=== PATIENT | female | born 1945 | race African-American/Black ===

== ENCOUNTER 2017-08-24 10:13 | Emergency (ER) | payer MEDICARE ==
[2017-08-24 10:31] VITALS: BP 145/81; PULSE 74; TEMP 98.1; BMI 25.4
--- NOTE | 2017-08-24 11:37 | PDOC ---
History of Present Illness - General Chief Complaint: Injury Stated Complaint: INJURY Time Seen by Provider: 08/24/17 10:23 History Source: Patient Exam Limitations: No Limitations - History of Present Illness Initial Comments: 08/24/17 11:32 CHIEF COMPLAINT: Mechanical fall on August 06 left shoulder pain HISTORY OF PRESENT ILLNESS: Patient is a 72-year-old female with history of hypertension, chronic pain, high cholesterol presents emergency Department status post fall on 08/06/2017 patient reports hitting her left shoulder. Patient states that she thought the pain would go away however still with pain with range of motion to left shoulder. Patient also complains of intermittent pain just when touching left hip. Patient denies any difficulty walking, denies any scrapes bruises abrasions erythema or edema. Pain to left hip is only superficial when palpating area over left hip. No pain with range of motion. Patient denies hitting her head states that she is on Coumadin, no bruising after incident patient is unsure why she is taking Coumadin denies any history of blood clots or cardiac surgery. MEDS: See medication list ALLERGIES: None PCP: Dr. Field REVIEW OF SYSTEMS: GENERAL/CONSTITUTIONAL: Awake alert and oriented HEAD, EYES, EARS, NOSE AND THROAT: No change in vision. No facial edema, no bruising. NO active bleeding. Nares intact. RESPIRATORY: No cough, wheezing, or hemoptysis. CARDIAC: Denies chest pain, no shortness of breathe. MUSCULOSKELETAL: No spinal point tenderness, Good ROM to all four extremities. NO CVA tenderness. NO lateral neck pain. GI/: Denies abdominal pain, no nausea or vomiting, no bloody stool, no Hematuria. SKIN : No erythema or bruising noted. No abrasion or lacerations. NEUROLOGIC: No loss of consciousness, no numbness or tingling. PHYSICAL EXAM: GENERAL: Awake and alert and oriented x3. EYES: The pupils are equal, round, and reactive to light, with clear, conjunctiva. Good extraocular movement. No nystagmus NOSE: No nasal trauma . Midface stable MOUTH: Teeth intact. EARS: The ear canals and tympanic membranes are normal without trauma. No drainage. NECK: No Lower cervical C-spine tenderness, no pain with chin to chest. CHEST: The lungs are clear without crackles, or wheezes. No subcutaneous emphysema. No crepitus. HEART: Heart is regular rhythm, with normal S1 and S2, no murmurs. ABDOMEN: The abdomen is soft and nontender with normal bowel sounds. There is no guarding or rebound. MUSCULOSKELETAL: No spinal point tenderness. No bruising or erythema. Pelvis stable. EXTREMITIES: Extremities are normal. No visible traumatic injury. Pain with ROM to the left shoulder however good ROM, no deformities. NEUROLOGICAL:Mental status: The patient is oriented x3. No Generalized headache , Romberg - Cranial nerves: Cranial nerves II through XII are intact Motor: The upper extremities are 5 over 5 in all muscle groups. The lower extremities are 5 over 5 in all muscle groups. Sensation: Sensation is intact to light touch throughout. Cerebellar: Iutjcc-[id number]-[id number] is normal in both upper extremities. Heel-knee- berrios is normal in both lower extremities. Reflexes: 2+ and symmetric in the upper and lower extremities. Gait: Normal. Heel and toe walking are normal. Tandem gait is normal. SKIN: Without edema, erythema or bruising. No abrasions or lacerations. Past History - Past Medical History Allergies/Adverse Reactions: Allergies Allergy/AdvReac Type Severity Reaction Status Date / Time No Known Drug Allergies Allergy Verified 08/24/17 10:17 Home Medications: Ambulatory Orders Atorvastatin Calcium [Lipitor] 10 mg PO HS #0 tablet 02/26/13 Losartan Potassium [Cozaar] 100 mg PO DAILY 01/20/15 Potassium Chloride [K-Dur -] 20 meq PO DAILY #30 tablet.er 02/07/15 Gabapentin 400 mg PO HS 08/13/15 Warfarin Na [Coumadin] 4 mg PO DAILY 08/13/15 Amlodipine Besylate 5 mg PO DAILY 08/24/17 Lipase/Protease/Amylase [Zenpep Dr 25,000 Units Capsule] 08/24/17 Anemia: No Asthma: No Cancer: No Cardiac Disorders: No CVA: No COPD: No CHF: No Dementia: No Diabetes: Yes (borderline) GI Disorders: No Disorders: No HTN: Yes (Losartan potassium, Vitamin D-3) Hypercholesterolemia: Yes Liver Disease: No Seizures: No Thyroid Disease: No - Surgical History Abdominal Surgery: Yes (cholecystectomy 12/2014) Appendectomy: No Cardiac Surgery: No Cholecystectomy: No Lung Surgery: No Neurologic Surgery: No Orthopedic Surgery: No - Suicide/Smoking/Psychosocial Hx Smoking Status: No Smoking History: Never smoked Have you smoked in the past 12 months: No Number of Cigarettes Smoked Daily: 0 Information on smoking cessation initiated: No Hx Alcohol Use: No Drug/Substance Use Hx: No Substance Use Type: None Hx Substance Use Treatment: No *Physical Exam - Vital Signs Last Vital Signs Temp Pulse Resp BP Pulse Ox 98.1 F 74 17 145/81 100 08/24/17 10:15 08/24/17 10:15 08/24/17 10:15 08/24/17 10:15 08/24/17 10:15 ED Treatment Course - RADIOLOGY Radiology Studies Ordered: Category Date Time Status SHOULDER-LEFT [RAD] Stat Radiology 08/24/17 11:31 Ordered Medical Decision Making - Medical Decision Making 08/24/17 11:37 A/P: Patient here for evaluation of left shoulder pain and left hip pain only on palpation after falling several weeks ago. Patient with no visible traumatic injury sent to x-ray for shoulder patient states pain is only on hip when touching skin and is resolving. Left shoulder was negative for acute pathology, we'll discharge patient home to follow-up with orthopedics patient states her pain is significantly decreased since initial injury and it may be getting better I recommended the patient follow up with orthopedics in one more week if pain persists. Tylenol as needed for pain. 08/24/17 18:35 *DC/Admit/Observation/Transfer Diagnosis at time of Disposition: Accidental fall Qualifiers: Encounter type: initial encounter Qualified Code(s): W19.XXXA - Unspecified fall, initial encounter Shoulder injury Qualifiers: Encounter type: initial encounter Laterality: left Qualified Code(s): S49.92XA - Unspecified injury of left shoulder and upper arm, initial encounter - Discharge Dispostion Disposition: HOME Condition at time of disposition: Good Admit: No - Referrals Referrals: Blayne Field MD [Primary Care Provider] - - Patient Instructions Printed Discharge Instructions: How to Use a Sling Additional Instructions: Tylenol as needed for pain, recommend follow-up with orthopedics for evaluation. Your x-rays negative.
== END 2017-08-24 13:05 | disposition home or self-care (01) ==
LOC: JERFT 10:13
DX: S49.82XA Other specified injuries of left shoulder and upper arm, initial encounter (principal); W18.30XA Fall on same level, unspecified, initial encounter; Y93.89 Activity, other specified; Y92.89 Other specified places as the place of occurrence of the external cause; Y99.8 Other external cause status; I10 Essential (primary) hypertension; E11.9 Type 2 diabetes mellitus without complications; Z79.84 Long term (current) use of oral hypoglycemic drugs
CPT/HCPCS: 73030-TC-LT; 99281-25

== ENCOUNTER 2018-08-07 16:39 | Emergency (ER) | payer MEDICARE ==
[2018-08-07 17:01] VITALS: BP 164/84; PULSE 82; TEMP 98; BMI 27.3
--- NOTE | 2018-08-07 17:49 | PDOC ---
History of Present Illness - General Chief Complaint: Injury Stated Complaint: FALL, LEFT SIDE PAIN Time Seen by Provider: 08/07/18 17:47 History Source: Patient Exam Limitations: No Limitations - History of Present Illness Initial Comments: CHIEF COMPLAINT: 73 y/o afebrile female with PMH HTN, hx of blood clots (on Coumadin) c/o left breast pain, left arm pain and left low back pain x 1 month. HISTORY OF PRESENT ILLNESS: The patient fell onto the floor when she missed the chair she was trying to sit on on 07/10/18 (one month ago). she states she's had some pain on and off. She is taking tylenol with little relief. She denies head trauma, LOC, neck pain, n/v/d, SOB, abd pain, hematuria, dysuria, numbness/tingling of extremities. Vital signs on arrival are within normal limits. REVIEW OF SYSTEMS: GENERAL/CONSTITUTIONAL: No fever/chills. No weakness. No weight change. HEAD, EYES, EARS, NOSE AND THROAT: No change in vision. No ear pain or discharge. No sore throat. MUSCULOSKELETAL: +left breast pain. +left arm pain. +left low back pain. SKIN: No rash or easy bruising. NEUROLOGIC: No headache, vertigo, loss of consciousness, or loss of sensation. PHYSICAL EXAM: GENERAL: The patient is awake, alert, and fully oriented, in no acute distress. SHe is well appearing, ambulatory and pleasant. HEAD: Normal with no signs of trauma. ENT: Pupils equal, round and reactive to light, extraocular movements intact, sclera anicteric, conjunctiva clear. Neck supple. CHEST WALL: TTP just under left breast without deformities, crepitus or flail chest. MUSCULOSKELETAL: TTP of left AC joint. Full flexion, extension, abduction and adduction of left arm without swelling or deformities. BACK: No midline lumbar spine TTP or step offs. Pain reproduced with palpation of left lumbar paravertebral muscles. Full flexion and extension of lumbar spine. NEUROLOGICAL: Normal speech, normal gait. CN II-XII grossly intact. SKIN: Warm, dry, normal turgor, no rashes or lesions noted. Past History - Past Medical History Allergies/Adverse Reactions: Allergies Allergy/AdvReac Type Severity Reaction Status Date / Time No Known Drug Allergies Allergy Verified 08/07/18 16:57 Home Medications: Ambulatory Orders Losartan Potassium [Cozaar] 100 mg PO DAILY 01/20/15 Potassium Chloride [K-Dur -] 20 meq PO DAILY #30 tablet.er 02/07/15 Gabapentin 400 mg PO HS 08/13/15 Warfarin Na [Coumadin] 4 mg PO DAILY 08/13/15 Amlodipine Besylate 5 mg PO DAILY 08/24/17 Tramadol HCl 50 mg PO BID PRN #20 tablet MDD 2 08/07/18 Anemia: No Asthma: No Cancer: No Cardiac Disorders: No CVA: No COPD: No CHF: No Dementia: No Diabetes: Yes (borderline) GI Disorders: No Disorders: No HTN: Yes (Losartan potassium, Vitamin D-3) Hypercholesterolemia: Yes Liver Disease: No Seizures: No Thyroid Disease: No - Surgical History Abdominal Surgery: Yes (cholecystectomy 12/2014) Appendectomy: No Cardiac Surgery: No Cholecystectomy: No Lung Surgery: No Neurologic Surgery: No Orthopedic Surgery: No - Immunization History Immunization Up to Date: Yes - Suicide/Smoking/Psychosocial Hx Smoking Status: No Smoking History: Never smoked Have you smoked in the past 12 months: No Number of Cigarettes Smoked Daily: 0 Hx Alcohol Use: No Drug/Substance Use Hx: No Substance Use Type: None Hx Substance Use Treatment: No *Physical Exam - Vital Signs Last Vital Signs Temp Pulse Resp BP Pulse Ox 98.0 F 82 20 164/84 98 08/07/18 16:57 08/07/18 16:57 08/07/18 16:57 08/07/18 16:57 08/07/18 16:57 Medical Decision Making - Medical Decision Making A/P: 73 y/o afebrile female with musculoskeletal pain from a fall 1 month ago. Plan is as follows: 1. xray left ribs Xray left ribs IMPRESSION: (wet read). No acute pathology. Patient given results. Will send rx for tramadol. Informed the patient it can cause drowsiness so I instructed her to be extremely careful. She has an apptmt with her PMD on Thursday and I encouraged her to keep that appointment. Suggested alternating ice and heating pad to affected areas. The patient verbalizes understanding of all instructions, has no further questions and is awaiting discharge. *DC/Admit/Observation/Transfer Diagnosis at time of Disposition: Chest wall pain, Tendinitis of left rotator cuff Low back pain Qualifiers: Chronicity: acute Back pain laterality: left Sciatica presence: without sciatica Qualified Code(s): M54.5 - Low back pain - Discharge Dispostion Disposition: HOME Condition at time of disposition: Good - Referrals Referrals: Blayne Field MD [Primary Care Provider] - (Keep follow up appointment) - Patient Instructions Printed Discharge Instructions: DI for Rotator Cuff Injury, DI for Musculoskeletal Pain Additional Instructions: Discharge Instructions: -Your xrays were normal -A prescription for pain medication has been sent to your pharmacy; it may cause drowsiness -Please alternate icing and heating pad to affected areas -Keep follow up appointment with your doctor -Return to the ER with any worsening or concerning symptoms - Post Discharge Activity
== END 2018-08-07 18:44 | disposition home or self-care (01) ==
LOC: JERFT 16:39
DX: R07.89 Other chest pain (principal); M54.5 Low back pain; M65.812 Other synovitis and tenosynovitis, left shoulder; I10 Essential (primary) hypertension; Z86.718 Personal history of other venous thrombosis and embolism; Z79.01 Long term (current) use of anticoagulants; E78.00 Pure hypercholesterolemia, unspecified
CPT/HCPCS: 71101-TC-FY; 99281-25

== ENCOUNTER 2019-05-18 10:46 | Emergency (ER) | payer BC ==
[2019-05-18 10:55] VITALS: BP 137/82; PULSE 92; TEMP 98.5; BMI 26.9
[2019-05-18] MEDS ORDERED: METHOCARBAMOL 500 MG TABLET PO ONE (11:18)
[2019-05-18] MEDS ORDERED: DEXAMETHASONE 4 MG TABLET (FP) PO ONE (11:18)
[2019-05-18] MEDS ORDERED: DEXAMETHASONE SOD PHOSPHATE 10 MG/1 ML VIAL ONE (11:21)
--- NOTE | 2019-05-18 11:24 | PDOC ---
History of Present Illness - General Chief Complaint: Chronic pain Stated Complaint: HIP PAIN Time Seen by Provider: 05/18/19 11:05 History Source: Patient Exam Limitations: Clinical Condition - History of Present Illness Initial Comments: 05/18/19 11:18 Patient with history of chronic left hip pain being followed up by orthopedics, cardiomyopathy on Coumadin and hypertension present with complaint of persistent left hip pain not improving with Tylenol. Patient had MRI done 2 days ago which shows labrum tear of left hip. Patient has a follow-up appointment with orthopedics in 5 days. Patient reported increased pain to left hip when bending down or getting up from sitting position. Denies saddle paresthesia, urinary or fecal incontinence. Denies any other symptoms Timing/Duration: 1 week Past History - Past Medical History Allergies/Adverse Reactions: Allergies Allergy/AdvReac Type Severity Reaction Status Date / Time No Known Drug Allergies Allergy Verified 08/07/18 16:57 Home Medications: Ambulatory Orders Losartan Potassium [Cozaar] 100 mg PO DAILY 01/20/15 Gabapentin 300 mg PO HS 08/13/15 Warfarin Na [Coumadin] 4 mg PO DAILY 08/13/15 Amlodipine Besylate 5 mg PO DAILY 08/24/17 Diclofenac Sodium [Voltaren] 1 applic TP Q8H PRN #1 tube 05/18/19 Potassium Chloride [K-Dur -] 10 meq PO DAILY 05/18/19 Anemia: No Asthma: No Cancer: No Cardiac Disorders: No CVA: No COPD: No CHF: No Dementia: No Diabetes: Yes (borderline) GI Disorders: No Disorders: No HTN: Yes (Losartan potassium, Vitamin D-3) Hypercholesterolemia: Yes Liver Disease: No Seizures: No Thyroid Disease: No - Surgical History Abdominal Surgery: Yes (cholecystectomy 12/2014) Appendectomy: No Cardiac Surgery: No Cholecystectomy: No Lung Surgery: No Neurologic Surgery: No Orthopedic Surgery: No - Immunization History Immunization Up to Date: Yes - Suicide/Smoking/Psychosocial Hx Smoking Status: No Smoking History: Never smoked Have you smoked in the past 12 months: No Number of Cigarettes Smoked Daily: 0 Information on smoking cessation initiated: No Hx Alcohol Use: No Drug/Substance Use Hx: No Substance Use Type: None Hx Substance Use Treatment: No Review of Systems - Review of Systems Able to Perform ROS?: Yes Is the patient limited Korean proficient: No Constitutional: No: Malaise, Weakness HEENTM: No: Symptoms Reported Respiratory: No: Symptoms reported Cardiac (ROS): No: Symptoms Reported ABD/GI: No: Symptoms Reported Musculoskeletal: Yes: Symptoms Reported, See HPI, Joint Pain (left hip), Muscle Pain (left hip) Integumentary: No: Symptoms Reported Neurological: No: Numbness, Paresthesia, Tingling All Other Systems: Reviewed and Negative *Physical Exam - Vital Signs Last Vital Signs Temp Pulse Resp BP Pulse Ox 98.5 F 92 H 16 137/82 97 05/18/19 10:50 05/18/19 10:50 05/18/19 10:50 05/18/19 10:50 05/18/19 10:50 - Physical Exam Comments: 05/18/19 11:23 GENERAL: Well developed, well nourished. Awake and alert in moderate acute distress. CARDIOVASCULAR: Regular rate and rhythm. No murmurs, rubs, or gallops. PULMONARY: No evidence of respiratory distress. MUSCULOSKELETAL : moderate TTP over lateral aspect of left hip over ASIS and left groin area. No bony deformities EXTREMITIES: No cyanosis. No clubbing. No edema. No calf tenderness. SKIN: Warm and dry. Normal capillary refill. No rashes. NEUROLOGICAL: Alert, awake, appropriate. No motor deficits in the lower extremities. Gait is normal with cane. PSYCHIATRIC: Cooperative. Good eye contact. Appropriate mood and affect. General Appearance: Yes: Nourished, Appropriately Dressed, Moderate Distress Medical Decision Making - Medical Decision Making 05/18/19 11:21 Patient with history of chronic left hip pain being followed up by orthopedics, cardiomyopathy on Coumadin and hypertension present with complaint of persistent left hip pain not improving with Tylenol. Patient had MRI done 2 days ago which shows labrum tear of left hip. Patient has a follow-up appointment with orthopedics in 5 days. Patient reported increased pain to left hip when bending down or getting up from sitting position. Denies saddle paresthesia, urinary or fecal incontinence. Denies any other symptoms Exam significant for moderate tenderness to left ASIS and lateral aspect of left hip otherwise normal exam. Given unable to take NSAIDs due to being on Coumadin, Decadron 10 mg by mouth and Robaxin 500 mg by mouth ordered for pain and spasm. Patient will be discharged home valtren gel for pain with orthopedist follow-up as scheduled in 5 days *DC/Admit/Observation/Transfer Diagnosis at time of Disposition: Chronic left hip pain - Discharge Dispostion Disposition: HOME Condition at time of disposition: Stable Decision to Admit order: No - Prescriptions Prescriptions: Diclofenac Sodium [Voltaren] 1 applic TP Q8H PRN #1 tube PRN Reason: left hip pain - Referrals - Patient Instructions Printed Discharge Instructions: DI for Hip Pain Additional Instructions: Take medications as prescribed for pain. Apply warm compresses to left hip 2-3 times a day for 5-10 minutes as needed for pain. Follow-up with orthopedics in 5 days as scheduled - Post Discharge Activity
[2019-05-18] MEDS ORDERED: METHOCARBAMOL 500 MG TABLET ONE (11:47)
== END 2019-05-18 11:53 | disposition home or self-care (01) ==
LOC: JER 10:46
DX: M25.552 Pain in left hip (principal); G89.29 Other chronic pain; Z79.01 Long term (current) use of anticoagulants; I51.9 Heart disease, unspecified; I10 Essential (primary) hypertension; E78.00 Pure hypercholesterolemia, unspecified
CPT/HCPCS: 99281-25

== ENCOUNTER 2019-10-21 16:37 | Emergency (ER) | payer BC, OTHER ==
[2019-10-21 16:57] VITALS: TEMP 98; BMI 25.9
--- NOTE | 2019-10-21 17:17 | PDOC ---
History of Present Illness - General Chief Complaint: Pain Stated Complaint: LT HIP PAIN Time Seen by Provider: 10/21/19 17:17 - History of Present Illness Initial Comments: HPI: 74yo F with PMH of blood clots on coumadin, HTN, chronic L. hip and lower back pain presenting with L. hip pain. She has had intermittent pain in this area since 2017 when she "missed a chair." Pain is currently rated 8/10 and worsens anytime she moves a certain way. Denies any recent trauma. No IVDU, night sweats , or recent weight loss. No saddle anesthesia or urinary/stool incontinence. She had taken two tablets of tylenol earlier today with minimal relief of pain. Has been able to ambulate at baseline with her cane. Last saw pain management and orthopedics about four months ago. Has never done physical therapy as she cannot afford it. Injections have helped in the past. Denies fever, chills, chest pain, or shortness of breath. ROS: Constitutional: no fever, no chills HEENT: no throat pain, no dysphagia Cardiovascular: no chest pain, no palpitations Respiratory: no cough, no shortness of breath Gastrointestinal: no abdominal pain, no nausea Genitourinary: no dysuria, no hematuria Musculoskeletal: +back pain, +L. hip pain Skin: no rash, no itching Neurologic: no headache, no weakness PE: General: Awake, alert, and fully oriented, in no acute distress Head: No signs of trauma Eyes: EOMI, sclera anicteric ENT: Moist mucus membranes Neck: Normal ROM, supple Lungs: Lungs clear, Normal breath sounds Cardio: Regular rhythm, S1 and S2 present Abdomen: Soft, nontender Extremities: Normal range of motion, Distal pulses present SKIN: Warm, Dry, normal turgor Neurologic: Cranial nerves II through XII grossly intact. Normal speech Back: Tender to palpation in lumbar area, midline, no step-offs/deformities/ fluctuance; no overlying wound or lesion ED Course/MDM: DDX including but not limited to MSK, fracture, epidural abscess, TB, malignancy History and physical consistent with acute exacerbation of chronic back pain Imaging deferred at this time Lidocaine patch Oxycodone 5mg Expectations management Will reassess 10/21/19 17:17 MRI left hip on 05/16/19 as read by radiology: "Exam: MRI of the left hip. Clinical indication: Left hip pain. Evaluate for torn ligament. Description: Coronal T1 and T2 STIR images of the pelvis including both hips were obtained. Coronal proton density and fat-suppressed proton-density; axial T1 and fat- suppressed proton-density; and axial oblique and sagittal fat-suppressed proton density images of the left hip were obtained. The bone marrow is somewhat heterogeneous which is likely due to red marrow reconversion. There is mild faint increased T2 signal of the left ilium just above the acetabular roof which may be consistent with bone marrow edema in the region of the origin of the rectus femoris tendon and is possibly reactive or focal red marrow. There is no significant hip joint effusion. There are osteophytes of the acetabula and femoral heads. The left superior labrum appears largely replaced by osteophyte and may be torn. There is a possible left-sided anterior labral tear versus a labral recess. The posterior labrum is unremarkable. There is mild fluid adjacent to the greater trochanters, right greater than left, consistent with greater trochanteric bursitis. There is mild soft tissue edema surrounding the distal gluteus minimus tendon which may be due to tendinosis or partial tear. The left gluteus medius tendon is intact. Impression: 1. Heterogeneous bone marrow which may be due to red marrow reconversion. 2. Mild increased T2 signal of the anterior aspect of the left ilium superior to the acetabular roof which could represent focal red marrow or bone marrow edema and could be reactive to the attachment of the rectus femoris tendon. For further evaluation a bone scan could be obtained. 3. Mild osteoarthritic changes of the left hip. 4. Possible tears of the left superior and anterior labrum. 5. Mild bilateral greater trochanteric bursitis, right greater than left, and mild soft tissue edema surrounding the distal left gluteus minimus tendon which may be due to tendinosis or partial tear. Reported By: Coral Tse MD 05/16/19 [id number] " Patient never followed up for bone scan Call to Dr. Field, [phone]; awaiting callback 10/21/19 19:[address] Field. In the event she is dicharged, atient can follow up with him and he believes she is reliable to receive the bone scan 10/21/19 19:17 Patient states pain has improved, now 5/10 Able to ambulate with steady gait 5 tablets of oxycodone sent to pharmacy; patient educated regarding the risks/ benefits of opioid pain medication; instructed to use tylenol for pain if she does not need to use oxycodone Return precautions Stable for discharge Past History - Past Medical History Allergies/Adverse Reactions: Allergies Allergy/AdvReac Type Severity Reaction Status Date / Time No Known Drug Allergies Allergy Verified 10/21/19 16:39 Home Medications: Ambulatory Orders Losartan Potassium [Cozaar] 100 mg PO DAILY 01/20/15 Gabapentin 300 mg PO BID 08/13/15 Warfarin Na [Coumadin] 4 mg PO DAILY 08/13/15 Amlodipine Besylate 5 mg PO DAILY 08/24/17 Potassium Chloride [K-Dur -] 10 meq PO DAILY 05/18/19 Acetaminophen [Tylenol -] 1,000 mg PO Q6H PRN #90 tablet 10/21/19 Famotidine [Pepcid -] 40 mg PO DAILY 10/21/19 Lidocaine 5% Patch [Lidoderm -] 1 patch TP DAILY #14 patch 10/21/19 Lipase/Protease/Amylase [Creon Dr 36,000 Units Capsule] 1 tab TID 10/21/19 Oxycodone HCl 10 mg PO Q8H PRN #5 tablet MDD 3 10/21/19 metroNIDAZOLE [Metronidazole] 250 mg PO TID 10/21/19 Anemia: No Asthma: No Cancer: No Cardiac Disorders: No CVA: No COPD: No CHF: No Dementia: No Diabetes: Yes (borderline) GI Disorders: No Disorders: No HTN: Yes (Losartan potassium, Vitamin D-3) Hypercholesterolemia: Yes Liver Disease: No Seizures: No Thyroid Disease: No - Surgical History Abdominal Surgery: Yes (cholecystectomy 12/2014) Appendectomy: No Cardiac Surgery: No Cholecystectomy: No Lung Surgery: No Neurologic Surgery: No Orthopedic Surgery: No - Immunization History Immunization Up to Date: Yes - Psycho Social/Smoking Cessation Hx Smoking Status: No Smoking History: Never smoked Have you smoked in the past 12 months: No Number of Cigarettes Smoked Daily: 0 Information on smoking cessation initiated: No Hx Alcohol Use: No Drug/Substance Use Hx: No Substance Use Type: None Hx Substance Use Treatment: No *Physical Exam - Vital Signs Last Vital Signs Temp Pulse Resp BP Pulse Ox 98 F 78 18 139/66 98 10/21/19 16:54 10/21/19 16:54 10/21/19 16:54 10/21/19 16:54 10/21/19 16:54 Discharge - Discharge Information Problems reviewed: Yes Clinical Impression/Diagnosis: Lumbar back pain Condition: Improved Disposition: HOME - Additional Discharge Information Prescriptions: Acetaminophen [Tylenol -] 1,000 mg PO Q6H PRN #90 tablet PRN Reason: Pain Lidocaine 5% Patch [Lidoderm -] 1 patch TP DAILY #14 patch Oxycodone HCl 10 mg PO Q8H PRN #5 tablet MDD 3 PRN Reason: Pain Level 7 - 10 - Follow up/Referral Referrals: Blayne Field MD [Primary Care Provider] - - Patient Discharge Instructions Patient Printed Discharge Instructions: DI for Low Back Pain Additional Instructions: You came to the emergency department for hip and back pain. Your pain improved with oxycodoneand a lidoderm patch. Prescription sent to your pharmacy. Take as instructed. You can also take [id number] tylenol for pain. Follow the instructions on the medication bottle. Follow-up with you primary care physician within 72 hours to discuss this ED visit and to further evaluate your back pain. Your care is not complete until you do so. Call and make an appointment. Immediate medical attention is required if you have back pain and : numbness in the genital or rectal area, loss of bowel or bladder control, difficulty with urination; fever, unexplained weight loss, or other signs of illness or infection. If you think you are having an emergency, call for emergency medical - Post Discharge Activity
[2019-10-21] MEDS ORDERED: LIDOCAINE 5% TOPICAL PATCH TP ONE (17:43)
[2019-10-21] MEDS ORDERED: oxyCODONE HCL 5 MG TABLET PO ONE (17:57)
[2019-10-21] MEDS ORDERED: oxyCODONE HCL 5 MG TABLET ONE (18:18)
[2019-10-21] MEDS ORDERED: LIDOCAINE 5% TOPICAL PATCH ONE (18:18)
--- NOTE | 2019-10-21 18:36 | PDOC ---
Documentation entered by Risa Garcia SCRIBE, acting as scribe for Uri Rios MD. Uri Rios MD: This documentation has been prepared by the Jose landers Nirvannie, SCRIBE, under my direction and personally reviewed by me in its entirety. I confirm that the documentation accurately reflects all work, treatment, procedures, and medical decision making performed by me. 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 Pt states that she has had pain in her L hip since 2017 when she slipped and fell. Pt has seen orthopedics and pain management for the same pain in the past and received injections and pain medications. Her pain was well managed until last night when the pain suddenly worsened as she was walking to the bathroom. Pt denies any falls. Denies any weakness/numbness in her leg. Denies any incontinence. Pt took tylenol with mild relief. - Physicial Exam PE: 10/21/19 18:39 See resident exam - Medical Decision Making 10/21/19 18:39 74 F with atraumatic acute on chronic L hip pain. Pt ambulatory in ED with steady gait. - Pain control Pt is well appearing, with normal vitals. Clinically stable for DC at this time. I discussed the physical exam findings, ancillary test results and final diagnoses with the patient. I answered all of the patient's questions. The patient was satisfied with the care received and felt comfortable with the discharge plan and treatment plan. The patient agrees to follow up with the primary care physician within 24-72 hours.
[2019-10-21 21:02] VITALS: BP 145/72; PULSE 75
[2019-10-21] MEDS ORDERED: LIDOCAINE PATCH REMOVAL MC SCH (22:00)
== END 2019-10-21 20:50 | disposition home or self-care (01) ==
LOC: JER 16:37
DX: I10 Essential (primary) hypertension (principal); E11.9 Type 2 diabetes mellitus without complications; E78.00 Pure hypercholesterolemia, unspecified; Z86.718 Personal history of other venous thrombosis and embolism; Z79.01 Long term (current) use of anticoagulants; Z90.49 Acquired absence of other specified parts of digestive tract
CPT/HCPCS: 99283-25

== ENCOUNTER 2020-05-12 12:34 | Inpatient (IN) | payer OTHER ==
--- NOTE | 2020-05-12 13:09 | PDOC ---
Rapid Medical Evaluation Time Seen by Provider: 05/12/20 13:05 Medical Evaluation: Allergies Allergy/AdvReac Type Severity Reaction Status Date / Time No Known Drug Allergies Allergy Verified 10/21/19 16:39 05/12/20 13:05 CC: s/p fall a months ago and had developed pain to left neck/shoulder but since yesterday has developed chest squeezing sensation , not aggravated by movement, denies SOB, palpitations Exam: no reproducible chest tenderness, vss, lcta Plan: ekg, labs, cxr Discharge Disposition - Diagnosis Chest pain - Referrals - Patient Instructions - Post Discharge Activity
[2020-05-12 13:13] VITALS: BMI 24.5
--- NOTE | 2020-05-12 13:34 | PDOC ---
Attending Attestation - Resident Resident Name: Justin Sr - HPI HPI: 05/12/20 15:21 Pt presents to the ED complaining of a 24 hour history of L sided intermittent chest pain that is moderate in severity. Denies shortness of breath, aggrevating or alieviating factors. Denies fever. - Physicial Exam PE: 05/12/20 16:11 Agree with resident exam. Pt is alert and oriented and in no acute distress. Lungs are clear. CV: rrr no m/r/g abdomen: soft, non tender, non distended, no guarding or rebound. Ext: no edema or tenderness. - Medical Decision Making 05/12/20 16:13 Pt presents to the ED complaining of L sided chest pain. EKG shows no evidence of acute ischemia but HEART score is 5. Will admit to medicine for rule out ACS. History of DVT, but INR is therapeutic, so will not scan for PE at this time. 05/12/20 16:16 Discharge - Discharge Information Problems reviewed: Yes Clinical Impression/Diagnosis: Chest pain Qualifiers: Chest pain type: unspecified Qualified Code(s): R07.9 - Chest pain, unspecified - Follow up/Referral - Patient Discharge Instructions - Post Discharge Activity
--- NOTE | 2020-05-12 13:37 | PDOC ---
History of Present Illness - General Chief Complaint: Pain, Acute Stated Complaint: LT SHOULDER PAIN/ LT LEG PAIN Time Seen by Provider: 05/12/20 13:05 History Source: Patient - History of Present Illness Initial Comments: 05/12/20 13:51 HTN, HLD, on warfarin s/p DVT p/w 1 day of intermittent chest pain. 6/10 at worst, radiating to L arm, worse than baseline L arm pain since fall in December. No worsening on exertion. No pain at this time. Denies palpitations, sob, weakness, confusion, fevers, chills. No smoking history. Past History - Medical History Allergies/Adverse Reactions: Allergies Allergy/AdvReac Type Severity Reaction Status Date / Time No Known Drug Allergies Allergy Verified 10/21/19 16:39 Home Medications: Ambulatory Orders Losartan Potassium [Cozaar] 100 mg PO DAILY 01/20/15 Gabapentin 300 mg PO BID 08/13/15 Warfarin Na [Coumadin] 4 mg PO DAILY 08/13/15 Amlodipine Besylate 5 mg PO DAILY 08/24/17 Potassium Chloride [K-Dur -] 10 meq PO DAILY 05/18/19 Acetaminophen [Tylenol -] 1,000 mg PO Q6H PRN #90 tablet 10/21/19 Famotidine [Pepcid -] 40 mg PO DAILY 10/21/19 Lidocaine 5% Patch [Lidoderm -] 1 patch TP DAILY #14 patch 10/21/19 Lipase/Protease/Amylase [Creon Dr 36,000 Units Capsule] 1 tab TID 10/21/19 Oxycodone HCl 10 mg PO Q8H PRN #5 tablet MDD 3 10/21/19 metroNIDAZOLE [Metronidazole] 250 mg PO TID 10/21/19 Anemia: No Asthma: No Cancer: No Cardiac Disorders: No CVA: No COPD: No CHF: No Dementia: No Diabetes: Yes (borderline) GI Disorders: No Disorders: No HTN: Yes (Losartan potassium, Vitamin D-3) Hypercholesterolemia: Yes Liver Disease: No Seizures: No Thyroid Disease: No - Surgical History Abdominal Surgery: Yes (cholecystectomy 12/2014) Appendectomy: No Cardiac Surgery: No Cholecystectomy: No Lung Surgery: No Neurologic Surgery: No Orthopedic Surgery: No - Immunization History Immunization Up to Date: Yes - Psycho-Social/Smoking History Smoking Status: No Smoking History: Never smoked Have you smoked in the past 12 months: No Number of Cigarettes Smoked Daily: 0 - Substance Abuse Hx (Audit-C & DAST Scrn) In the last yr the pt used illegal drug/Rx for NonMed reason: No Score: Yes response is considered Positive: 0 Screen Result (Positive result requires Nsg. DAST-10): Negative *Physical Exam - Vital Signs Last Vital Signs Temp Pulse Resp BP Pulse Ox 98.5 F 71 15 147/75 99 05/12/20 13:05/12/20 13:05/12/20 13:05/12/20 13:05/12/20 13:10 Heart Score/ECG Review - History History: Slightly suspicious - Electrocardiogram EKG: Normal - Age Age: >/= 65 - Risk Factors Risk Factors Heart Score: Yes Hx Hypercholesterolemia, Yes Hx Hypertension, Yes Positive family hx of cardiac disease Based on the list above the patient has:: >/=3 risk factors or Hx atherosclerotic disease - Troponin Troponin: </= normal limit - Score Heart Score - Total: 4 Discharge - Discharge Information Clinical Impression/Diagnosis: Chest pain - Follow up/Referral Referrals: Blayne Field MD [Primary Care Provider] - - Patient Discharge Instructions - Post Discharge Activity
[2020-05-12 15:39] LABS: BASO % 1.3 % (0-2.0); EOS % 0.9 % (0-4.5); HEMOGLOBIN 12.6 GM/dL (10.7-15.3); LYMPH % 45.6 % (8-40); MCH 31.7 pg (25.7-33.7); MCHC 33.2 g/dl (32.0-36.0); MEAN CELL VOLUME 95.4 fl (80-96); MEAN PLT VOLUME 8.5 fl (7.5-11.1); MONO % 10.7 % (3.8-10.2); NEUT % 41.5 % (42.8-82.8); PLATELET COUNT 183 K/MM3 (134-434); RBC 3.98 M/mm3 (3.60-5.2); RDW 14.1 % (11.6-15.6)
[2020-05-12 15:50] LABS: INR 3.23 (0.83-1.09); PROTHROMBIN TIME (PATIENT) 38.6 SEC (9.7-13.0)
[2020-05-12 15:52] LABS: ACTIVATED PTT 47.4 SECONDS (25.2-36.5)
[2020-05-12 16:05] LABS: ALBUMIN 4.2 g/dl (3.4-5.0); ALK PHOS 71 U/L (45-117); ANION GAP 10 MMOL/L (8-16); BILIRUBIN,TOTAL 0.7 mg/dL (0.2-1); BLOOD UREA NITROGEN 6.8 mg/dL (7-18); CHLORIDE 110 mmol/L (98-107); CO2 22 mmol/L (21-32); CREATININE 0.8 mg/dL (0.55-1.3); GLUCOSE,RANDOM 92 mg/dL (74-106); POTASSIUM 3.9 mmol/L (3.5-5.1); SGOT/AST 36 U/L (15-37); SGPT/ALT 35 U/L (13-61); SODIUM 142 mmol/L (136-145); TOT PROT 7.3 g/dl (6.4-8.2)
[2020-05-12] MEDS ORDERED: ASPIRIN 325 MG ENTERIC COATED TABLET (FP) PO ONE (16:17)
[2020-05-12] MEDS ORDERED: ASPIRIN 81 MG CHEWABLE TABLETS ONE (17:23)
--- NOTE | 2020-05-12 18:23 | HP ---
CHIEF COMPLAINT: CHEST PAIN PCP: FINESSE HISTORY OF PRESENT ILLNESS: 75 Y/O FEMALE WITH HX OF HTN AND HL, HX OF PE (ON COUMADIN) PRESENTS WITH ONGOING LEFT ARM AND SHOULDER PAIN FOR MONTHS STATES SHE HAD LEFT SIDED CHEST PAIN WHICH BEGAN ABOUT A DAY AGO, INTERMITTENT BUT NOT RESOLVING. DENIES ANY PLEURITIC PAIN. NO ASSOCIATED SOB, NAUSEA OR VOMITING WITH THE CHEST PAIN. NO RADIATION OF THE PAIN NOT RELATED TO FOOD ER course was notable for: (1) LEFT SIDED CHEST PAIN (2) (3) Recent Travel: DENIES PAST MEDICAL HISTORY: HTN, HL, ARTHRITIS, hx of pe PAST SURGICAL HISTORY: HYSTERECTOMY, CHOLECYSTECTOMY Social History: Smoking: DENIES Alcohol: DENIES Drugs: DENIES Allergies No Known Drug Allergies Allergy (Verified 10/21/19 16:39) HOME MEDICATIONS: Home Medications Medication Instructions Recorded Losartan Potassium [Cozaar] 100 mg PO DAILY 01/20/15 Gabapentin 300 mg PO BID 08/13/15 Warfarin Na [Coumadin] 4 mg PO DAILY 08/13/15 Amlodipine Besylate 5 mg PO DAILY 08/24/17 Potassium Chloride [K-Dur -] 10 meq PO DAILY 05/18/19 Acetaminophen [Tylenol -] 1,000 mg PO Q6H PRN #90 tablet 10/21/19 Famotidine [Pepcid -] 40 mg PO DAILY 10/21/19 Lidocaine 5% Patch [Lidoderm -] 1 patch TP DAILY #14 patch 10/21/19 Lipase/Protease/Amylase [Creon Dr 1 tab TID 10/21/19 36,000 Units Capsule] Oxycodone HCl 10 mg PO Q8H PRN #5 tablet MDD 3 10/21/19 metroNIDAZOLE [Metronidazole] 250 mg PO TID 10/21/19 REVIEW OF SYSTEMS CONSTITUTIONAL: Absent: fever, chills, diaphoresis, generalized weakness, malaise, loss of appetite, weight change HEENT: Absent: rhinorrhea, nasal congestion, throat pain, throat swelling, difficulty swallowing, mouth swelling, ear pain, eye pain, visual changes CARDIOVASCULAR: pos chest pain, no syncope, palpitations, irregular heart rate, lightheadedness, peripheral edema RESPIRATORY: Absent: cough, shortness of breath, dyspnea with exertion, orthopnea, wheezing, stridor, hemoptysis GASTROINTESTINAL: Absent: abdominal pain, abdominal distension, nausea, vomiting, diarrhea, constipation, melena, hematochezia GENITOURINARY: Absent: dysuria, frequency, urgency, hesitancy, hematuria, flank pain, genital pain MUSCULOSKELETAL: Absent: myalgia, arthralgia, joint swelling, back pain, neck pain POS LEFT SHOULDER PAIN SKIN: Absent: rash, itching, pallor HEMATOLOGIC/IMMUNOLOGIC: Absent: easy bleeding, easy bruising, lymphadenopathy, frequent infections ENDOCRINE: Absent: unexplained weight gain, unexplained weight loss, heat intolerance, cold intolerance NEUROLOGIC: Absent: headache, focal weakness or paresthesias, dizziness, unsteady gait, seizure, mental status changes, bladder or bowel incontinence PSYCHIATRIC: Absent: anxiety, depression, suicidal or homicidal ideation, hallucinations. PHYSICAL EXAMINATION Vital Signs - 24 hr 05/12/20 05/12/20 13:10 16:43 Temperature 98.5 F 98.2 F Pulse Rate 71 Pulse Rate [ 65 Left Radial] Respiratory 15 Rate Blood Pressure 147/75 Blood Pressure 147/76 [Right Arm] O2 Sat by Pulse 99 99 Oximetry (%) GENERAL: Awake, alert, and fully oriented, in no acute distress. HEAD: Normal with no signs of trauma. EYES: extraocular movements intact, sclera anicteric, conjunctiva clear. No lid lag. EARS, NOSE, THROAT: Ears normal, nares patent, oropharynx clear without exudates. Moist mucous membranes. NECK: Normal range of motion, supple without lymphadenopathy, JVD, or masses. LUNGS: Breath sounds equal, clear to auscultation bilaterally. No wheezes, and no crackles. No accessory muscle use. HEART: Regular rate and rhythm, normal S1 and S2 without murmur, rub or gallop. ABDOMEN: Soft, nontender, not distended, normoactive bowel sounds, no guarding, no rebound, no masses. No hepatomegaly or splenomegaly. MUSCULOSKELETAL: Normal range of motion at all joints. No bony deformities or tenderness. No CVA tenderness. POS REPRODUCIBLE LEFT CHEST PAIN UPPER EXTREMITIES: 2+ pulses, warm, well-perfused. No cyanosis. No clubbing. No peripheral edema. LOWER EXTREMITIES: 2+ pulses, warm, well-perfused. No calf tenderness. No peripheral edema. NEUROLOGICAL: Cranial nerves II-XII intact. Normal speech. Normal gait. PSYCHIATRIC: Cooperative. Good eye contact. Appropriate mood and affect. SKIN: Warm, dry, normal turgor, no rashes or lesions noted, normal capillary refill. Laboratory Results - last 24 hr 05/12/20 05/12/20 05/12/20 14:30 14:30 14:30 WBC 4.0 RBC 3.98 Hgb 12.6 Hct 38.0 MCV 95.4 MCH 31.7 MCHC 33.2 RDW 14.1 Plt Count 183 MPV 8.5 Absolute Neuts (auto) 1.7 Neutrophils % 41.5 L D Lymphocytes % 45.6 H Monocytes % 10.7 H Eosinophils % 0.9 Basophils % 1.3 D Nucleated RBC % 0 PT with INR 38.60 H INR 3.23 H PTT (Actin FS) 47.4 H Sodium 142 Potassium 3.9 Chloride 110 H Carbon Dioxide 22 Anion Gap 10 BUN 6.8 L Creatinine 0.8 Est GFR (CKD-EPI)AfAm 83.59 Est GFR (CKD-EPI)NonAf 72.12 Random Glucose 92 Calcium 9.0 Total Bilirubin 0.7 AST 36 ALT 35 Alkaline Phosphatase 71 Creatine Kinase 139 Troponin I < 0.02 Total Protein 7.3 Albumin 4.2 EKG: NSR@66BPM, RBBB, LAD CXR: NAPD, ROTATED, PER MY INTERPRETATION ASSESSMENT/PLAN: 75 Y/O FEMALE WITH HTN HL, PE HX ADMITTED WITH LEFT SIDED CHEST PAIN *CHEST PAIN - ATYPICAL, HAS SOME REPRDUCBILE PAIN ON EXAM ?COSTCHONDRITIS LOW SUSPICION OF PE NO PLEURITIC COMPONENT AND INR OVER 3 TRIAL OF NSAID MONITOR ON TELE SERIAL CARDIAC ENZYMES CARDIO EVAL *HTN - BP SLIGHTLY ELEVATED ON NORVASC AND [place] ADJUST NORVASC DOSE IF PERSISTENTLY ELEVATED *HL - NOT NOTED TO BE ON A STATIN CHECK AM LIPIDS *HX OF PE - INR SUPRATHERAPEUTIC HOLD COUMADIN, NO SIGNS OF BLEEDING ALLOW TO DRIFT DOWN NATURALLY RECHECK INR IN AM GOAL INR 2-3 *DVT PROPHY - INR OVER 3 Family Medical History Family History: Denies Family Hx Cardiac Disorders: Son Problem List - Problem (1) Chest pain Code(s): R07.9 - CHEST PAIN, UNSPECIFIED Qualifiers: Chest pain type: unspecified Qualified Code(s): R07.9 - Chest pain, unspecified Visit type - Emergency Visit Emergency Visit: Yes ED Registration Date: 05/12/20 Care time: The patient presented to the Emergency Department on the above date and was hospitalized for further evaluation of their emergent condition. - New Patient This patient is new to me today: Yes Date on this admission: 05/12/20 - Critical Care Critical Care patient: No
[2020-05-12] MEDS ORDERED: NITROGLYCERIN SUBLINGUAL 1/150 0.4 MG TAB SL PRN (18:33)
[2020-05-12] MEDS ORDERED: ACETAMINOPHEN 325 MG TABLET (FP) PO PRN (18:33)
[2020-05-12] MEDS: PANTOPRAZOLE 40 MG TABLET PO SCH (20:50)
[2020-05-12] MEDS: GABAPENTIN 300 MG CAPSULE PO SCH (21:04)
[2020-05-13 06:53] LABS: INR 2.44 (0.83-1.09)
[2020-05-13 06:57] LABS: BASO % 0.8 % (0-2.0); EOS % 1.4 % (0-4.5); HEMATOCRIT 39.1 % (32.4-45.2); HEMOGLOBIN 13.1 GM/dL (10.7-15.3); LYMPH % 43.9 % (8-40); MCH 31.2 pg (25.7-33.7); MCHC 33.6 g/dl (32.0-36.0); MEAN CELL VOLUME 93.1 fl (80-96); MEAN PLT VOLUME 8.7 fl (7.5-11.1); MONO % 11.4 % (3.8-10.2); NEUT % 42.5 % (42.8-82.8); PLATELET COUNT 217 K/MM3 (134-434); WHITE BLOOD COUNT 4.2 K/mm3 (4.0-10.0)
[2020-05-13 07:18] LABS: ANION GAP 9 MMOL/L (8-16); BLOOD UREA NITROGEN 7.2 mg/dL (7-18); CALCIUM 9.1 mg/dL (8.5-10.1); CHLORIDE 109 mmol/L (98-107); CHOLESTEROL 117 mg/dL (50-200); CO2 23 mmol/L (21-32); CREATININE 0.8 mg/dL (0.55-1.3); GLUCOSE,RANDOM 129 mg/dL (74-106); LDL CHOLESTEROL (ONLY SJRH) 60 mg/dL (5-100); POTASSIUM 3.9 mmol/L (3.5-5.1); SODIUM 141 mmol/L (136-145); TRIGLYCERIDES 92 mg/dL (0-150)
[2020-05-13 07:28] LABS: HDL CHOLESTEROL 47 mg/dL (40-60)
[2020-05-13] MEDS: ASPIRIN 325 MG TABLET PO SCH (09:37)
[2020-05-13] MEDS: amLODIPine BESYLATE 5 MG TABLET (FP) PO SCH (09:37)
[2020-05-13] MEDS: LOSARTAN POTASSIUM 50 MG TABLET (FP) PO SCH (09:38)
[2020-05-13] MEDS: PANTOPRAZOLE 40 MG TABLET PO SCH (09:38)
[2020-05-13] MEDS: GABAPENTIN 300 MG CAPSULE PO SCH ×2 (09:38→21:41)
--- NOTE | 2020-05-13 11:11 | PN ---
Progress Note, Physician History of Present Illness: seen and examined at bedside. No complaints. States her left sided chest pain, point tenderness, and left arm pain has resolved. INR within range now and no longer supratherapeutic. - Current Medication List Current Medications: Active Medications Acetaminophen (Tylenol -) 650 mg PO Q6H PRN PRN Reason: PAIN LEVEL 1 - 3 Amlodipine Besylate (Norvasc -) 5 mg PO DAILY [facility] Last Admin: 05/13/20 09:37 Dose: 5 mg Documented by: Aspirin (Asa -) 325 mg PO DAILY [facility] Last Admin: 05/13/20 09:37 Dose: 325 mg Documented by: Atorvastatin Calcium (Lipitor -) 10 mg PO [facility] Gabapentin (Neurontin -) 300 mg PO BID [facility] Last Admin: 05/13/20 09:38 Dose: 300 mg Documented by: Losartan Potassium (Cozaar -) 100 mg PO DAILY [facility] Last Admin: 05/13/20 09:38 Dose: 100 mg Documented by: Nitroglycerin (Nitrostat -) 0.4 mg SL Q5M PRN PRN Reason: FOR CHEST PAIN Pantoprazole Sodium (Protonix -) 40 mg PO DAILY [facility] Last Admin: 05/13/20 09:38 Dose: 40 mg Documented by: Potassium Chloride (K-Dur -) 10 meq PO DAILY [facility] Warfarin Sodium (Coumadin -) 4 mg PO DAILY@1800 [facility] - Objective Vital Signs: Vital Signs Temperature 97.6 F 05/13/20 09:48 Pulse Rate 58 L 05/13/20 09:48 Respiratory Rate 20 05/13/20 09:48 Blood Pressure 123/55 L 05/13/20 09:48 O2 Sat by Pulse Oximetry (%) 99 05/12/20 22:52 Constitutional: Yes: No Distress, Calm Eyes: Yes: Conjunctiva Clear HENT: Yes: Atraumatic Neck: Yes: Supple Cardiovascular: Yes: Regular Rate and Rhythm Respiratory: Yes: CTA Bilaterally Gastrointestinal: Yes: Soft Extremities: Yes: WNL Edema: No Neurological: Yes: Alert Psychiatric: Yes: Alert Labs: CBC, BMP 05/13/20 06:05 05/13/20 06:05 INR, PTT INR 2.44 (0.83-1.09) H 05/13/20 06:05 - ....Imaging X-ray: Report Reviewed, Image Reviewed Impression/Plan Impression/Plan: A/P: 75F PMHx of HTN HLD, PE HX ADMITTED WITH LEFT SIDED CHEST PAIN Atypical chest pain-r/o ACS. ACS very unlikely given chronicity and reproducible pain Possible costochondritis vs other MSK injury no events on telemetry trop neg x3 Cards consult pending history of VTE continue home dose of coumadin 4mg po daily HTN Continue Norvasc 5mg po daily continue losartan 100mg po daily DM: HbA1C is 7.0% check fingersticks during hospitalization HLD restart statin-on lipitor 10mg po QHS Lipid panel with LDL 60 Hx OF PE-INR therapeutic today at 2.44 Goal INR 2-3 DVT PPx INR is therapeutic today Meds verified with patient by me. Med Rec done. Visit type - Emergency Visit Emergency Visit: Yes ED Registration Date: 05/12/20 Care time: The patient presented to the Emergency Department on the above date and was hospitalized for further evaluation of their emergent condition. - New Patient This patient is new to me today: Yes Date on this admission: 05/13/20 - Critical Care Critical Care patient: No
--- NOTE | 2020-05-13 11:28 | EKG ---
Test Reason : Blood Pressure : / mmHG Vent. Rate : 065 BPM Atrial Rate : 065 BPM P-R Int : 236 ms QRS Dur : 126 ms QT Int : 446 ms P-R-T Axes : -13 -65 005 degrees QTc Int : 463 ms SINUS RHYTHM WITH 1ST DEGREE A-V BLOCK WITH OCCASIONAL PREMATURE VENTRICULAR COMPLEXES LEFT AXIS DEVIATION RIGHT BUNDLE BRANCH BLOCK ABNORMAL ECG WHEN COMPARED WITH ECG OF 25-JAN-2015 19:39, PREMATURE VENTRICULAR COMPLEXES ARE NOW PRESENT RIGHT BUNDLE BRANCH BLOCK IS NOW PRESENT Confirmed by ZAFAR EDMONDS MD ([id number]) on 05/13/2020 11:27:47 AM Referred By: Confirmed By:ZAFAR EDMONDS MD
--- NOTE | 2020-05-13 13:10 | CON.CARD ---
Consult Consult Specialty:: Cardiology Referred by:: Dr. Alvarez Reason for Consultation:: Chest pain - History of Present Illness Chief Complaint: Chest pain History of Present Illness: 75 year-old woman with a PMHx of HTN, HLD, on warfarin for DVT admitted 05/12/20 with one day of intermittent chest pain. The patient has on-going left shoulder and arm pain for 4 months after a fall in December 2019. She developed left sided chest pain, under her left breast, with associated worsening left arm and should pain for 2 days before admission. She reports the chest pain is not exacerbated by exertion. No associated SOB, palpitation or diaphoresis. She can locate the tenderness point under her left breast on palpation. CT ruled out. ECG 05/12/20: Sinus rhythm, LAD. RBBB. No ST-T abnormalities except RBBB related. - History Source History Provided By: Patient, Significant Other Limitations to Obtaining History: No Limitations - Past Medical History Cardio/Vascular: Yes: HTN, Hyperlipdemia Gastrointestinal: Yes: Cancer (Colon cancer) Hepatobiliary: Yes: Cirrhosis Endocrine: Yes: Diabetes Mellitus - Past Surgical History Past Surgical History: Yes: Hysterectomy - Alcohol/Substance Use Hx Alcohol Use: No - Smoking History Smoking history: Never smoked Have you smoked in the past 12 months: No Aproximately how many cigarettes per day: 0 - Social History Usual Living Arrangement: Alone ADL: Independent History of Recent Travel: No Home Medications - Allergies Allergies/Adverse Reactions: Allergies Allergy/AdvReac Type Severity Reaction Status Date / Time No Known Drug Allergies Allergy Verified 10/21/19 16:39 - Home Medications Home Medications: Ambulatory Orders Losartan Potassium [Cozaar] 100 mg PO DAILY 01/20/15 Warfarin Na [Coumadin] 4 mg PO DAILY 08/13/15 Amlodipine Besylate 5 mg PO DAILY 08/24/17 Potassium Chloride [K-Dur -] 10 meq PO DAILY 05/18/19 Atorvastatin Ca [Lipitor] 10 mg PO HS 05/13/20 Gabapentin 300 mg PO BID 05/13/20 Review of Systems - Review of Systems Constitutional: reports: No Symptoms Eyes: reports: No Symptoms HENT: reports: No Symptoms Neck: reports: No Symptoms Cardiovascular: reports: Chest Pain Respiratory: reports: No Symptoms Gastrointestinal: reports: No Symptoms Genitourinary: reports: No Symptoms Breasts: reports: No Symptoms Reported Musculoskeletal: reports: Extremity Pain Integumentary: reports: No Symptoms Neurological: reports: No Symptoms Endocrine: reports: No Symptoms Hematology/Lymphatic: reports: No Symptoms Vital Signs: Vital Signs Temperature 97.6 F 05/13/20 09:48 Pulse Rate 58 L 05/13/20 09:48 Respiratory Rate 05/13/20 09:48 Blood Pressure 123/55 L 05/13/20 09:48 O2 Sat by Pulse Oximetry (%) 99 05/13/20 09:00 General: Well developed. Well nourished. No acute distress. Head: Normocephalic. Atraumatic, Eyes: PERRLA, EOMI. Sclerae anicteric. Conjunctivae clear. Neck: Supple. No JVD. No bruits. Heart: Normal S1, S2: Regular rhythm and rate. No murmur. No gallop or rub. Lungs: Symmetrical air entry. Clear to auscultation. No crackles. No wheezing or rhonchi. Abdomen: Soft. Bowel sound positive. Non tender. No masses. Extremities: No edema. No clubbing or cyanosis. PD 2+, equal bilaterally. Neuro: Intact, no focal findings. AAO X3. - Other Data Labs, Other Data: CBC, BMP 05/13/20 06:05 05/13/20 06:05 INR, PTT INR 2.44 (0.83-1.09) H 05/13/20 06:05 Troponin, BNP 05/12/20 05/12/20 05/13/20 14:30 21:58 06:05 Troponin I < 0.02 < 0.02 < 0.02 Troponin, BNP 05/12/20 05/12/20 05/13/20 14:30 21:58 06:05 Troponin I < 0.02 < 0.02 < 0.02 Imaging - Results EKG: Image Reviewed (CT ruled out. ECG 05/12/20: Sinus rhythm, LAD. RBBB. No ST-T abnormalities except RBBB related.) Assessment/Plan 75 year-old woman with a PMHx of HTN, HLD, on warfarin for DVT admitted 05/12/20 with one day of intermittent chest pain. The patient has on-going left shoulder and arm pain for 4 months after a fall in December 2019. She developed left sided chest pain, under her left breast, with associated worsening left arm and should pain for 2 days before admission. She reports the chest pain is not exacerbated by exertion. No associated SOB, palpitation or diaphoresis. She can locate the tenderness point under her left breast on palpation. CT ruled out. ECG 05/12/20: Sinus rhythm, LAD. RBBB. No ST-T abnormalities except RBBB related. Atypical chest pain with local tenderness. No evidence of CT or ECG changes of ischemia. It is not acute coronary syndrome. No ischemic work up recommended during this hospitalization. May discharge the patient with outpatient cardiac follow up. Please do not hesitate to call us for re-consult at any time if any further questions or additional issue arises regarding this patient.
[2020-05-13] MEDS ORDERED: WARFARIN NA 2 MG TABLET PO SCH (18:00)
[2020-05-13] MEDS ORDERED: GABAPENTIN 300 MG CAPSULE PO SCH (22:00)
[2020-05-13] MEDS ORDERED: ATORVASTATIN CA 10 MG TABLET (FP) PO SCH (22:00)
[2020-05-14 07:35] LABS: HEMATOCRIT 40.9 % (32.4-45.2); HEMOGLOBIN 13.8 GM/dL (10.7-15.3); MCH 31.2 pg (25.7-33.7); MCHC 33.7 g/dl (32.0-36.0); MEAN CELL VOLUME 92.7 fl (80-96); MEAN PLT VOLUME 8.4 fl (7.5-11.1); PLATELET COUNT 203 K/MM3 (134-434); RBC 4.41 M/mm3 (3.60-5.2); RDW 14.2 % (11.6-15.6); WHITE BLOOD COUNT 3.7 K/mm3 (4.0-10.0)
[2020-05-14 07:45] LABS: INR 2.04 (0.83-1.09); PROTHROMBIN TIME (PATIENT) 24.3 SEC (9.7-13.0)
[2020-05-14 07:54] LABS: BLOOD UREA NITROGEN 8.5 mg/dL (7-18); CALCIUM 9.5 mg/dL (8.5-10.1); CREATININE 0.8 mg/dL (0.55-1.3); MAGNESIUM 2.1 mg/dL (1.8-2.4); POTASSIUM 3.9 mmol/L (3.5-5.1)
[2020-05-14] MEDS: ASPIRIN 325 MG TABLET PO SCH (09:29)
[2020-05-14] MEDS: PANTOPRAZOLE 40 MG TABLET PO SCH (09:29)
[2020-05-14] MEDS: amLODIPine BESYLATE 5 MG TABLET (FP) PO SCH (09:29)
[2020-05-14] MEDS: LOSARTAN POTASSIUM 50 MG TABLET (FP) PO SCH (09:30)
[2020-05-14] MEDS: GABAPENTIN 300 MG CAPSULE PO SCH (09:30)
[2020-05-14] MEDS ORDERED: POTASSIUM CHLORIDE TABS 10 MEQ TABLET.ER (FP) PO SCH (10:00)
--- NOTE | 2020-05-14 10:07 | DS ---
Physical Exam: SUBJECTIVE: Patient seen and examined, feels well. denies any further chest pain, no shortness of breath. patient has follow up appt with her PCP, Dr. Dinero. She will follow up with him. She is being taught how to use a glucometer by her primary RN during hospital stay she will be started on metformin 500mg, blood sugars here stable. she will keep log at home and present log to PCP to determine ongoing need for Metformin vs. dietary control. OBJECTIVE: Patient is a 75 year old female with a past medical history of HTN HLD, PE (on coumadin). She is admitted for left sided chest pain and cardiac workup has been negative. She was evaluated by cardiology and cleared for outpatient workup. Hmga1c noted to be 7.0, blood sugars are not elevated here. Will start on low dose Metformin until she can follow up with her PCP June 01. She has risk factors (htn, hld, PE and now early onset diabetes). Vital Signs Period Temp Pulse Resp BP Sys/Almaraz Pulse Ox Last 24 Hr 97.4 F-98.1 F 63-78 20-20 124-154/56-91 97 PHYSICAL EXAM GENERAL: The patient is awake, alert, and fully oriented, in no acute distress. HEAD: Normal with no signs of trauma. EYES: PERRL, extraocular movements intact, sclera anicteric, conjunctiva clear. ENT: Ears normal, nares patent, oropharynx clear without exudates, moist mucous membranes. NECK: Trachea midline, full range of motion, supple. LUNGS: Breath sounds equal, clear to auscultation bilaterally, no wheezes, no crackles, no accessory muscle use. HEART: Regular rate and rhythm, S1, S2 without murmur, rub or gallop. ABDOMEN: Soft, nontender, nondistended, normoactive bowel sounds, no guarding, no rebound, no hepatosplenomegaly, no masses. EXTREMITIES: 2+ pulses, warm, well-perfused, no edema. NEUROLOGICAL: Cranial nerves II through XII grossly intact. Normal speech, gait not observed. PSYCH: Normal mood, normal affect. SKIN: Warm, dry, normal turgor, no rashes or lesions noted. LABS Laboratory Results - last 24 hr 05/13/20 05/13/20 05/14/20 16:37 20:21 06:00 WBC RBC Hgb Hct MCV MCH MCHC RDW Plt Count MPV PT with INR INR Sodium Potassium Chloride Carbon Dioxide Anion Gap BUN Creatinine Est GFR (CKD-EPI)AfAm Est GFR (CKD-EPI)NonAf POC Glucometer 79 109 111 Random Glucose Calcium Magnesium 05/14/20 05/14/20 05/14/20 06:50 06:50 06:50 WBC 3.7 L RBC 4.41 Hgb 13.8 Hct 40.9 MCV 92.7 MCH 31.2 MCHC 33.7 RDW 14.2 Plt Count 203 MPV 8.4 PT with INR 24.30 H INR 2.04 H Sodium 141 Potassium 3.9 Chloride 105 Carbon Dioxide 28 Anion Gap 8 BUN 8.5 Creatinine 0.8 Est GFR (CKD-EPI)AfAm 83.59 Est GFR (CKD-EPI)NonAf 72.12 POC Glucometer Random Glucose 121 H Calcium 9.5 Magnesium 2.1 HOSPITAL COURSE: Date of Admission:05/12/20 Date of Discharge: 05/14/20 HOSPITAL PROBLEM LIST AND OUTCOME: Chest pain, resolved ruled out for MT per cardiology no events on tele troponins negative PE history on coumadin, inr therapeutic continue home coumadin HTN stable on norvasc 5 and losartan 100mg daily DM HbA1C is 7.0% check fingersticks outpatient, start metformin. follow up with PCP CUAUHTEMOC lipitor 10mg discharge home with outpatient follow up Minutes to complete discharge: 45 Discharge Summary Problems reviewed: Yes Reason For Visit: CHEST PAIN Current Active Problems Chest pain (Acute) Condition: Improved - Instructions Diet, Activity, Other Instructions: Mrs Quintanilla You were admitted for chest pain and your cardiac workup is negative. You were evaluated by a die storage worker and it is recommended that you follow up with them for outpatient workup. Here are our discharge recommendations: Your hmga1c was 7.0. What is a HmgA1c? A hmga1c is a lab test that we conduct to evaluate what your blood sugars have been in the last 3 months. Your levels are above normal We will be sending you home with Metformin 500mg once per day. Please use a glucometer to check your blood sugars twice per day, keep a log and show this log to your primary care doctor on your follow up appointment June 01. FOLLOW UPS: Please follow up with your PCP June 01. (Dr. Busch) and he will determine your ongoing need for Metformin. Please follow up with die storage worker (Dr. Alex) by calling his office for an appointment. Thank you for allowing us to care for you. Referrals: Blayne Field MD [Primary Care Provider] - Dewayne Alex MD [Staff Physician] - Disposition: HOME - Home Medications Comprehensive Discharge Medication List: Ambulatory Orders Losartan Potassium [Cozaar] 100 mg PO DAILY 01/20/15 Warfarin Na [Coumadin -] 4 mg PO DAILY 08/13/15 Amlodipine Besylate 5 mg PO DAILY 08/24/17 Potassium Chloride [K-Dur -] 10 meq PO DAILY 05/18/19 Atorvastatin Ca [Lipitor] 10 mg PO HS 05/13/20 Gabapentin 300 mg PO BID 05/13/20 Alcohol Antiseptic Pads [Alcohol Swabs] 1 each TP AC #200 med..pad 05/14/20 Lancets 1 each MC AC #150 each 05/14/20 Metformin HCl [Glucophage] 500 mg PO DAILY #30 tablet 05/14/20 Miscellaneous Medical Supply [Glucometer Device] 1 each SQ AC #1 kit 05/14/20 Miscellaneous Medical Supply [Glucometer Test Strips #100] 1 each SCJ ASDIR #1 box 05/14/20 This patient is new to me today: Yes Date on this admission: 05/14/20 Emergency Visit: Yes ED Registration Date: 05/12/20 Care time: The patient presented to the Emergency Department on the above date and was hospitalized for further evaluation of their emergent condition. Critical Care patient: No - Discharge Referral Referred to [facility] No
[2020-05-14 10:10] VITALS: BP 122/65; PULSE 75; TEMP 98
--- NOTE | 2020-05-14 13:33 | EKG ---
Test Reason : Blood Pressure : / mmHG Vent. Rate : 066 BPM Atrial Rate : 066 BPM P-R Int : 234 ms QRS Dur : 126 ms QT Int : 450 ms P-R-T Axes : 052 -60 029 degrees QTc Int : 471 ms POOR DATA QUALITY, INTERPRETATION MAY BE ADVERSELY AFFECTED SINUS RHYTHM WITH 1ST DEGREE A-V BLOCK LEFT AXIS DEVIATION /LAFB RIGHT BUNDLE BRANCH BLOCK ABNORMAL ECG WHEN COMPARED WITH ECG OF 12-MAY-2020 13:14, PREMATURE VENTRICULAR COMPLEXES ARE NO LONGER PRESENT Confirmed by Rd Watkins ([id number]) on 05/14/2020 1:33:23 PM Referred By: Confirmed By:Rd Watkins
== END 2020-05-14 13:42 | disposition home or self-care (01) | DRG 313 ==
LOC: JER 12:34 → JERBED 16:23 → OBSVTOIN 18:33 → J4W 19:31
PROVIDERS: ADMIT Internal Medicine; ATTEND Nurse Practitioner Family
DX: R07.89 Other chest pain (principal); I10 Essential (primary) hypertension; E78.5 Hyperlipidemia, unspecified; E11.9 Type 2 diabetes mellitus without complications; I45.10 Unspecified right bundle-branch block; Z85.038 Personal history of other malignant neoplasm of large intestine; Z86.718 Personal history of other venous thrombosis and embolism
CPT/HCPCS: 36415; 71045-TC-FY; 80048; 80053; 80061; 82550; 82962; 83036; 83721; 83735; 84443; 84484; 85025; 85027; 85610; 85730; 93005; 93010; 99285-25; G0378; U0003

== ENCOUNTER 2022-12-26 12:24 | Emergency (ER) | payer OTHER ==
[2022-12-26 12:35] VITALS: RESP 18; TEMP 98.6; BMI 24.3
[2022-12-26] MEDS ORDERED: LIDOCAINE 5% TOPICAL PATCH TP ONE (13:29)
[2022-12-26] MEDS ORDERED: ACETAMINOPHEN 500 MG TABLET (FP) PO ONE (13:30)
[2022-12-26] MEDS ORDERED: ACETAMINOPHEN 325 MG TABLET (FP) ONE (13:37)
[2022-12-26] MEDS ORDERED: LIDOCAINE 5% TOPICAL PATCH ONE (13:40)
[2022-12-26 13:44] VITALS: BP 127/73; PULSE 63
[2022-12-26] MEDS ORDERED: LIDOCAINE PATCH REMOVAL MC ONE (22:00)
== END 2022-12-26 15:43 | disposition home or self-care (01) ==
LOC: JER 12:24 → JERFT 12:24
DX: M54.50 Low back pain, unspecified (principal)
CPT/HCPCS: 72131-TC; 74176-TC; 99284-25

== ENCOUNTER 2023-02-27 03:57 | Day surgery (SDC) | payer OTHER ==
[2023-02-25 14:23] VITALS: BMI 25.5
[~2023-02-27 03:57] MED LIST: BUPIVACAINE HCL/PF 0.5% (5MG/ML) 10 ML VIAL IJ ONE; IOHEXOL 180 MG/1 ML ML IJ ONE; LIDOCAINE HCL 1% PRESERVATIVE FREE - 30ML VIAL IJ ONE; TRIAMCINOLONE ACET 40MG/1ML VIAL IM ONE
[2023-02-27] MEDS ORDERED: TRIAMCINOLONE ACET 40MG/1ML VIAL ONE (07:18)
[2023-02-27] MEDS ORDERED: LIDOCAINE HCL/PF 1% SDV 5ML VIAL ONE (07:19)
[2023-02-27] MEDS ORDERED: BUPIVACAINE HCL/PF 0.5% (5MG/ML) 10 ML VIAL ONE (07:19)
[2023-02-27 08:25] VITALS: RESP 18
[2023-02-27] MEDS ORDERED: LIDOCAINE HCL 1% PRESERVATIVE FREE - 30ML VIAL IJ ONE (10:03)
[2023-02-27] MEDS ORDERED: BUPIVACAINE HCL/PF 0.5% (5MG/ML) 10 ML VIAL IJ ONE (10:03)
[2023-02-27] MEDS ORDERED: IOHEXOL 180 MG/1 ML ML IJ ONE (10:10)
[2023-02-27] MEDS ORDERED: TRIAMCINOLONE ACET 40MG/1ML VIAL IM ONE (10:11)
[2023-02-27 14:08] VITALS: BP 149/72; PULSE 62; TEMP 97.8
[2023-02-27] MEDS ORDERED: ACETAMINOPHEN 500 MG TABLET (FP) PO PRN (15:44)
== END 2023-02-27 11:00 | disposition home or self-care (01) ==
LOC: JASU-SURG 03:57
PROVIDERS: ATTEND Pain Medicine Pain Medicine
PROC: 3E0U3BZ Introduction of Anesthetic Agent into Joints, Percutaneous Approach (ICD-10-PCS; 2023-02-27)
PROC: 3E0U33Z Introduction of Anti-inflammatory into Joints, Percutaneous Approach (ICD-10-PCS; principal; 2023-02-27 10:15)
DX: M53.3 Sacrococcygeal disorders, not elsewhere classified (principal)
CPT/HCPCS: 76000-TC-FY

== ENCOUNTER 2023-04-15 07:48 | Emergency (ER) | payer OTHER ==
[2023-04-15 08:02] VITALS: BP 168/62; PULSE 92; RESP 18; TEMP 98; BMI 26.4
[2023-04-15] MEDS ORDERED: ACETAMINOPHEN 325 MG TABLET (FP) PO ONE (12:13)
[2023-04-15] MEDS ORDERED: ACETAMINOPHEN 325 MG TABLET (FP) ONE (12:18)
== END 2023-04-15 12:23 | disposition home or self-care (01) ==
LOC: JER 07:48
DX: M25.551 Pain in right hip (principal); M54.50 Low back pain, unspecified; W19.XXXA Unspecified fall, initial encounter
CPT/HCPCS: 72100-TC-FY; 72170-TC-FY; 73502-TC-LT-FY; 73700-TC-RT; 99284-25

== ENCOUNTER 2024-02-10 09:48 | Emergency (ER) | payer OTHER ==
[2024-02-10 10:19] VITALS: TEMP 98; BMI 24.4
[2024-02-10] MEDS ORDERED: ACETAMINOPHEN 325 MG TABLET (FP) ONE (11:23)
[2024-02-10] MEDS: ACETAMINOPHEN 500 MG TABLET (FP) PO ONE (11:45)
[2024-02-10 12:32] VITALS: BP 131/72; PULSE 67; RESP 17
== END 2024-02-10 12:39 | disposition home or self-care (01) ==
LOC: JER 09:48
DX: S79.911A Unspecified injury of right hip, initial encounter (principal); S39.92XA Unspecified injury of lower back, initial encounter; S69.91XA Unspecified injury of right wrist, hand and finger(s), initial encounter; W18.39XA Other fall on same level, initial encounter
CPT/HCPCS: 72100-TC-FY; 72170-TC-FY; 73110-TC-RT-FY; 73502-TC-RT-FY; 99284-25